=== PATIENT | male | born 1945 | race Caucasian/White ===

== ENCOUNTER 2021-02-25 16:01 | Emergency (ER) | payer MEDICARE, OTHER ==
[~2021-02-25] VITALS: Ht 177 cm; Wt 124.0 kg
--- NOTE | 2021-02-25 16:20 | ED General ---
General Stated Complaint: LOW BP, LETHARGIC Source of Information: Patient Exam Limitations: No Limitations History of Present Illness Date Seen by Provider: Feb 25, 2021 Time Seen by Provider: 16:17 Initial Comments To ER by private vehicle from home with reports of low blood pressure. He was seen at Dr. Johns's office today in preparation for upper GI endoscopy following some dark stools. He had a CBC drawn yesterday with a white count of 14 and hemoglobin of 16. He is on palliative care for chronic pain management. He denies any abdominal pain vomiting or hematemesis. During his visit with Dr. Johns, he was hypotensive at 80s over 50s and somnolent. They did make a change to his gabapentin today from 300 mg in the morning and 600 mg at night to 600 mg twice daily. Timing/Duration: 1-2 Days Severity: Moderate Associated Systoms: Denies Symptoms; No Chest Pain, No Cough; Weakness Allergies and Home Medications Allergies Coded Allergies: No Known Drug Allergies (Unverified , 02/25/21) Patient Home Medication List Home Medication List Reviewed: Yes Review of Systems Review of Systems Constitutional: see HPI EENTM: see HPI Respiratory: no symptoms reported Cardiovascular: no symptoms reported Gastrointestinal: melena Genitourinary: no symptoms reported Musculoskeletal: no symptoms reported Skin: no symptoms reported Psychiatric/Neurological: No Symptoms Reported Hematologic/Lymphatic: No Symptoms Reported Immunological/Allergic: no symptoms reported Physical Exam Vital Signs Capillary Refill : Height, Weight, BMI Height: '" Weight: lbs. oz. kg; BMI Method: General Appearance: No Apparent Distress, WD/WN, Other (Heart rate is 53, blood pressure 85/56. Alert talking jovial.) Eyes: Bilateral Eye Normal Inspection, Bilateral Eye PERRL, Bilateral Eye EOMI Neck: Full Range of Motion, Normal Inspection Respiratory: No Accessory Muscle Use, No Respiratory Distress Cardiovascular: Regular Rate, Rhythm, Normal Peripheral Pulses Gastrointestinal: Normal Bowel Sounds, Non Tender, Soft Extremity: Normal Capillary Refill, Normal Inspection Neurologic/Psychiatric: Alert, Oriented x3 Skin: Normal Color, Warm/Dry Focused Exam Lactate Level 02/25/21 17:05: Lactic Acid Level 1.22 Lactic Acid Level Laboratory Tests Test 02/25/21 17:05 Lactic Acid Level 1.22 MMOL/L (0.50-2.00) Progress/Results/Core Measures Suspected Sepsis SIRS Temperature: Pulse: Respiratory Rate: Laboratory Tests 02/25/21 16:15: White Blood Count 13.7H Blood Pressure / Mean: 02/25/21 17:05: Lactic Acid Level 1.22 Laboratory Tests 02/25/21 16:15: Creatinine 2.15H, INR Comment 1.0, Platelet Count 339, Total Bilirubin 1.0 Results/Orders Lab Results Laboratory Tests Test 02/25/21 16:15 02/25/21 17:05 Range/Units White Blood Count 13.7 H 4.3-11.0 10^3/uL Red Blood Count 5.06 4.30-5.52 10^6/uL Hemoglobin 15.0 13.3-17.7 g/dL Hematocrit 48 40-54 % Mean Corpuscular Volume 94 80-99 fL Mean Corpuscular Hemoglobin 30 25-34 pg Mean Corpuscular Hemoglobin Concent 31 L 32-36 g/dL Red Cell Distribution Width 15.6 H 10.0-14.5 % Platelet Count 339 130-400 10^3/uL Mean Platelet Volume 11.0 9.0-12.2 fL Immature Granulocyte % (Auto) 1 % Neutrophils (%) (Auto) 68 42-75 % Lymphocytes (%) (Auto) 20 12-44 % Monocytes (%) (Auto) 8 0-12 % Eosinophils (%) (Auto) 3 0-10 % Basophils (%) (Auto) 1 0-10 % Neutrophils # (Auto) 9.3 H 1.8-7.8 10^3/uL Lymphocytes # (Auto) 2.7 1.0-4.0 10^3/uL Monocytes # (Auto) 1.1 H 0.0-1.0 10^3/uL Eosinophils # (Auto) 0.4 H 0.0-0.3 10^3/uL Basophils # (Auto) 0.1 0.0-0.1 10^3/uL Immature Granulocyte # (Auto) 0.1 0.0-0.1 10^3/uL Prothrombin Time 13.6 12.2-14.7 SEC INR Comment 1.0 0.8-1.4 Activated Partial Thromboplast Time 33 24-35 SEC Sodium Level 138 135-145 MMOL/L Potassium Level 3.3 L 3.6-5.0 MMOL/L Chloride Level 101 98-107 MMOL/L Carbon Dioxide Level 27 21-32 MMOL/L Anion Gap 10 5-14 MMOL/L Blood Urea Nitrogen 29 H 7-18 MG/DL Creatinine 2.15 H 0.60-1.30 MG/DL Estimat Glomerular Filtration Rate 30 BUN/Creatinine Ratio 13 Glucose Level 104 70-105 MG/DL Calcium Level 9.1 8.5-10.1 MG/DL Corrected Calcium 9.1 8.5-10.1 MG/DL Total Bilirubin 1.0 0.1-1.0 MG/DL Aspartate Amino Transf (AST/SGOT) 12 5-34 U/L Alanine Aminotransferase (ALT/SGPT) 13 0-55 U/L Alkaline Phosphatase 92 40-136 U/L Troponin I < 0.028 <0.028 NG/ML Total Protein 7.3 6.4-8.2 GM/DL Albumin 4.0 3.2-4.5 GM/DL Lactic Acid Level 1.22 0.50-2.00 MMOL/L My Orders Orders - THERESA RUBIO APRN Protime With Inr (02/25/21 16:15) Partial Thromboplastin Time (02/25/21 16:15) Cbc With Automated Diff (02/25/21 16:15) Comprehensive Metabolic Panel (02/25/21 16:15) Ua Culture If Indicated (02/25/21 16:15) Ed Iv/Invasive Line Start (02/25/21 16:15) Chest 1 View, Ap/Pa Only (02/25/21 16:15) Ekg Tracing (02/25/21 16:15) Troponin I (02/25/21 16:15) Ns Iv 1000 Ml (Sodium Chloride 0.9%) (02/25/21 16:30) Blood Culture (02/25/21 16:37) Lactic Acid Analyzer (02/25/21 16:37) Vital Signs/I&O Capillary Refill : Departure Communication (Admissions) 1920-discussed with him that I believe him to be dehydrated. After 1 L of IV fluids his pressure is now up to 119/80. It has consistently risen since initiation of IV fluids. He is still unable to give us urine sample yet. He was offered and recommended admission here but states that he does not want to stay like to go home and have his RN friend check on him tomorrow. I will give him another liter of fluids which she agrees to receive prior to discharge. Impression Primary Impression: Dehydration Disposition: HOME, SELF-CARE Condition: Stable Departure-Patient Inst. Decision time for Depature: 17:49 Referrals: NO,LOCAL PHYSICIAN (PCP/Family) Primary Care Physician Patient Instructions: Dehydration, Adult (DC) Add. Discharge Instructions: 1. Drink plenty of fluids. Call Barron Chang tomorrow to schedule repeat blood work in the next few days. Return to ER for any worsening symptoms or other concerns. THERESA RUBIO GEOGRAPHIC INFORMATION SYSTEM SURVEYOR Feb 25, 2021 16:20
[2021-02-25 16:26] LABS: BASOPHILS # (AUTO) 0.1 10^3/uL (0.0-0.1); BASOPHILS % (AUTO) 1 % (0-10); EOSINOPHILS # (AUTO) 0.4 10^3/uL (0.0-0.3); EOSINOPHILS % (AUTO) 3 % (0-10); HEMATOCRIT 48 % (40-54); LYMPHOCYTES # (AUTO) 2.7 10^3/uL (1.0-4.0); LYMPHOCYTES % (AUTO) 20 % (12-44); MEAN CORPUSCULAR HEMOGLOBIN 30 pg (25-34); MEAN CORPUSCULAR HGB CONC 31 g/dL (32-36); MEAN CORPUSCULAR VOLUME 94 fL (80-99); MONOCYTES # (AUTO) 1.1 10^3/uL (0.0-1.0); MONOCYTES % (AUTO) 8 % (0-12); NEUTROPHILS # (AUTO) 9.3 10^3/uL (1.8-7.8); NEUTROPHILS % (AUTO) 68 % (42-75); PLATELET COUNT 339 10^3/uL (130-400); WHITE BLOOD COUNT 13.7 10^3/uL (4.3-11.0)
[2021-02-25] MEDS ORDERED: NS IV 1000 ML 1,000 ML IV SCH (16:30)
[2021-02-25 16:45] LABS: PROTHROMBIN TIME PATIENT 13.6 SEC (12.2-14.7)
[2021-02-25 16:48] LABS: ALANINE AMINOTRANSFERASE 13 U/L (0-55); ALKALINE PHOSPHATASE 92 U/L (40-136); BUN/CREATININE RATIO 13; CALCIUM 9.1 MG/DL (8.5-10.1); CARBON DIOXIDE 27 MMOL/L (21-32); CHLORIDE 101 MMOL/L (98-107); CREATININE SERUM 2.15 MG/DL (0.60-1.30); GFR ESTIMATED 30; GLUCOSE 104 MG/DL (70-105); POTASSIUM 3.3 MMOL/L (3.6-5.0); SODIUM 138 MMOL/L (135-145); TOTAL PROTEIN 7.3 GM/DL (6.4-8.2)
--- NOTE | 2021-02-25 16:59 | Diagnostic Imaging Report ---
INDICATION: Weakness COMPARISON: No priors FINDINGS: The heart is enlarged. There are bibasilar pulmonary opacities partially obscuring the diaphragms and heart borders. While there is some degree of partial atelectasis superimposed pneumonia could not be excluded. The upper lobes are clear. The pulmonary vascularity not grossly overdistended. IMPRESSION: Mild prominence of the heart, bibasilar infiltrates or atelectasis. No other significant finding. Dictated by: Dictated on workstation # [id number]
[2021-02-25] MEDS ORDERED: LACTATED RINGERS 1,000 ML IV SCH (18:00)
[2021-02-25] MEDS ORDERED: ONDANSETRON 4 MG/2 ML (SDV) Z0FRAN IVP ONE (19:15)
[2021-02-25 20:05] LABS: BILIRUBIN,URINE NEGATIVE (NEGATIVE); CLARITY,URINE SL CLOUDY; COLOR,URINE ORANGE; GLUCOSE, URINE (UA) NEGATIVE (NEGATIVE); KETONES,URINE NEGATIVE (NEGATIVE); LEUKOCYTE ESTERASE ,URINE NEGATIVE (NEGATIVE); NITRITE,URINE NEGATIVE (NEGATIVE); PH,URINE 5.5 (5-9); PROTEIN,URINE NEGATIVE (NEGATIVE)
[2021-02-25 20:17] LABS: AMORPHOUS SEDIMENT,UR FEW AMOR URATES /LPF; BACTERIA,URINE TRACE /HPF
[2021-02-25 20:24] VITALS: BP 112/71
== END 2021-02-25 20:28 | disposition home or self-care (01) ==
LOC: ER 16:05
DX: E86.0 Dehydration (principal)
CPT/HCPCS: 36415; 51701; 71045; 80053; 81000; 83605; 83735; 84484; 85025; 85610; 85730; 87040; 93005